=== PATIENT | male | born 1980 | race Caucasian/White ===

== ENCOUNTER 2020-11-26 08:57 | Outpatient (CLI) | payer OTHER | END 2020-11-26 23:59 | disposition home or self-care (01) | LOC: RAD 08:57 | PROVIDERS: ATTEND Family Medicine | DX: M25.531 Pain in right wrist (principal); M77.8 Other enthesopathies, not elsewhere classified | CPT/HCPCS: 73221 ==

== ENCOUNTER 2021-11-17 22:27 | Emergency (ER) | payer SELFPAY ==
[~2021-11-17] VITALS: Ht 182.9 cm; Wt 84.1 kg
[2021-11-17 23:53] VITALS: BP 132/89
== END 2021-11-17 23:54 ==
LOC: ER 22:27
DX: Z00.00 Encounter for general adult medical examination without abnormal findings (principal); Z72.89 Other problems related to lifestyle; Z98.890 Other specified postprocedural states
CPT/HCPCS: 99283